=== PATIENT | male | born 1980 | race Hispanic/Latino ===

== ENCOUNTER 2019-11-12 19:17 | Emergency (ER) | payer SELFPAY ==
[2019-11-12 19:53] LABS: Bilirubin Negative (Negative); Blood, Urine Negative (Negative); Clarity Clear (Clear); Glucose, Urine (Dipstick) Normal (Negative); Ketone, Urine Negative (Negative); Leukocyte Negative Leu/uL (Negative); Nitrite Negative (Negative); Protein, Urine (Dipstick) Negative (Neg-Trace); Specific Gravity, Urine 1.017 (1.002-1.036); Urobilinogen Normal mg/dL (Less than 2); pH, Urine 5.5 (5.0-9.0)
[2019-11-12] MEDS ORDERED: Lidocaine 1% PF 5 ML VIAL ONE (20:09)
[2019-11-12] MEDS ORDERED: cefTRIAXone\\ROCEPHIN 250 MG VIAL ONE (20:09)
[2019-11-12] MEDS ORDERED: Azithromycin 250 MG TAB ONE (20:09)
== END 2019-11-12 20:20 | disposition home or self-care (01) ==
LOC: ERS 19:17
DX: R30.0 Dysuria (principal)
CPT/HCPCS: 81003; 87491; 87591; 96372; 99283; J0696